=== PATIENT | female | born 1950 | race Caucasian/White ===

== ENCOUNTER 2016-08-18 08:40 | Emergency (ER) | payer MEDICARE, OTHER ==
[~2016-08-18] VITALS: Ht 161.3 cm; Wt 91.0 kg
[~2016-08-18 08:40] MED LIST: GUAI100S6 PO; MEDR4PAK3 PO; QUIN10TA15 PO; VENTAER INH; ZITH250T PO; [UNRECOGNIZED DRUG - REMARK]
[2016-08-18 08:43] VITALS: BP 162/80; PULSE 84; RESP 16; TEMP 97.9; O2SAT 99
[2016-08-18 09:10] VITALS: O2SAT 99
[2016-08-18] MEDS ORDERED: CALC600T13 PO (09:14)
[2016-08-18] MEDS ORDERED: QUIN20TA4 PO (09:14)
[2016-08-18] MEDS ORDERED: HYDR-3516 PO (09:14)
[2016-08-18] MEDS ORDERED: NABU1TAB37 PO (09:14)
[2016-08-18] MEDS ORDERED: FERR324T PO (09:14)
[2016-08-18] MEDS ORDERED: PANT40TA3 PO (09:14)
[2016-08-18] MEDS ORDERED: MONT10TA4 PO (09:14)
[2016-08-18] MEDS ORDERED: KETOROLAC TROMETHAMINE 30 MG/ML (IVP) VIAL IV PUSH ONE (09:15)
[2016-08-18] MEDS ORDERED: SODIUM CHLORIDE 0.9% FLUSH 5 ML FLUSH IVF PRN (09:15)
--- NOTE | 2016-08-18 09:24 | PD ---
HPI Chief Complaint: Chest Pain Time Seen by Provider: 08:56 Travel History International Travel<30 days: No Contact w/Intl Traveler<30days: No Traveled to known affect area: No History of Present Illness HPI This is a 65-year-old female who presents to the emergency department with right sided chest pain described as an aching in the chest wall that's been going on for about a week but has been worsening and was bothering her when she was sleeping last night. She says it hurts when she moves her arm and when she rolls from side to side. She denies any associated nausea or diaphoresis. It doesn't change with exertion only with movement. She does say she's been short of breath for about 4 months. Her primary care doctor in [place] did a pulmonary function test which was normal. She has not had any pain in her legs , but she did recently drive from [place] down to [place]. She is concerned that she may have breast cancer in her right breast as the pain is immediately behind her right breast. PFSH Past Medical History Arthritis: Yes (OA) Asthma: Yes Hypertension: Yes Respiratory: Yes (ASTHMA) Tetanus Vaccination: > 5 Years Influenza Vaccination: Yes ?: Not Menopausal: Yes Past Surgical History Joint Replacement: Yes (Rt. knee, Lt. shoulder) Social History Alcohol Use: No Tobacco Use: No Substance Use: No Allergies-Medications (Allergen,Severity, Reaction): Coded Allergies: Cipro (Unverified Allergy, Severe, SWELLING, 08/18/16) Clindamycin (Unverified Allergy, Severe, HIVES, 08/18/16) Morphine (Verified Allergy, Severe, FACIAL SWELLING/HIVES, 08/18/16) Penicillin (Unverified Allergy, Severe, FACE SWELLS, 08/18/16) Percocet (Verified Allergy, Severe, FACIAL SWELLING/HIVES, 08/18/16) Vancomycin (Unverified Allergy, Severe, RED MAN, 08/18/16) Uncoded Allergies: ? PAIN PILL (Allergy, Severe, SWELLING, 10/17/14) Reported Meds & Prescriptions Reported Meds & Active Scripts Active Reported Hydrocodone-Acetaminophen 5-325 mg Tab 1 Tab PO Q6H PRN Montelukast (Montelukast Sodium) 10 Mg Tab 10 Mg PO HS Ferrous Gluconate 324 Mg Tab 1 Tab PO DAILY Calcium 600 Mg Tab 600 Mg PO BID Quinapril (Quinapril HCl) 20 Mg Tab 20 Mg PO BID Nabumetone 500 Mg Tab 500 Mg PO BID Pantoprazole (Pantoprazole Sodium) 40 Mg Tab 40 Mg PO DAILY Review of Systems Except as stated in HPI: all other systems reviewed are Neg Physical Exam Narrative GENERAL:Well appearing, no acute distress SKIN: Warm and dry. HEAD: Atraumatic. Normocephalic. EYES: Pupils equal and round. No injection or drainage. ENT: Moist mucous membranes NECK: Trachea midline. CARDIOVASCULAR: Regular rate and rhythm. No murmur appreciated. Tender to palpation along the right chest wall immediately over the right breast. RESPIRATORY: Clear to auscultation. Breath sounds equal bilaterally. GASTROINTESTINAL: Abdomen soft, non-tender, nondistended. MUSCULOSKELETAL: Multiple scars on the bilateral lower extremities with 2+ pitting edema, swelling is worse in the left than the right. NEUROLOGICAL: Awake and alert. No obvious cranial nerve deficits. Moving all extremities. PSYCHIATRIC: Appropriate mood and affect; insight and judgment normal. Data Data Last Documented VS Vital Signs Date Time Temp Pulse Resp B/P Pulse Ox O2 Delivery O2 Flow Rate FiO2 08/18/16 09:30 69 14 139/63 100 Room Air 08/18/16 08:43 97.9 Orders Electrocardiogram (08/18/16 09:08) Complete Blood Count With Diff (08/18/16 09:08) Comprehensive Metabolic Panel (08/18/16 09:08) D-Dimer (08/18/16 09:08) Troponin I (08/18/16 09:08) Ecg Monitoring (08/18/16 09:08) Bilateral Bp Monitoring (08/18/16 09:08) Iv Access Insert/Monitor (08/18/16 09:08) Oximetry (08/18/16 09:08) Oxygen Administration (08/18/16 09:08) Sodium Chloride 0.9% Flush (Ns Flush) (08/18/16 09:15) Chest, Pa & Lat (08/18/16 09:08) Ketorolac Inj (Toradol Inj) (08/18/16 09:15) Labs Laboratory Tests Test 08/18/16 09:30 White Blood Count 7.0 TH/MM3 Red Blood Count 4.13 MIL/MM3 Hemoglobin 12.7 GM/DL Hematocrit 38.3 % Mean Corpuscular Volume 92.8 FL Mean Corpuscular Hemoglobin 30.8 PG Mean Corpuscular Hemoglobin 33.2 % Concent Red Cell Distribution Width 13.1 % Platelet Count 226 TH/MM3 Mean Platelet Volume 8.3 FL Neutrophils (%) (Auto) 71.6 % Lymphocytes (%) (Auto) 15.5 % Monocytes (%) (Auto) 8.7 % Eosinophils (%) (Auto) 2.3 % Basophils (%) (Auto) 1.9 % Neutrophils # (Auto) 5.0 TH/MM3 Lymphocytes # (Auto) 1.1 TH/MM3 Monocytes # (Auto) 0.6 TH/MM3 Eosinophils # (Auto) 0.2 TH/MM3 Basophils # (Auto) 0.1 TH/MM3 CBC Comment DIFF FINAL Differential Comment D-Dimer Quantitative (PE/DVT) 0.58 MG/L FEU Sodium Level 142 MEQ/L Potassium Level 3.6 MEQ/L Chloride Level 107 MEQ/L Carbon Dioxide Level 25.7 MEQ/L Anion Gap 9 MEQ/L Blood Urea Nitrogen 15 MG/DL Creatinine 0.80 MG/DL Estimat Glomerular Filtration 72 ML/MIN Rate Random Glucose 89 MG/DL Calcium Level 8.8 MG/DL Total Bilirubin 0.6 MG/DL Aspartate Amino Transf 16 U/L (AST/SGOT) Alanine Aminotransferase 19 U/L (ALT/SGPT) Alkaline Phosphatase 124 U/L Troponin I LESS THAN 0.02 NG/ML Total Protein 7.3 GM/DL Albumin 3.6 GM/DL [facility] Medical Decision Making Medical Screen Exam Complete: Yes Emergency Medical Condition: Yes Interpretation(s) Afebrile, no tachycardia, hypertensive No leukocytosis Electrolytes are reassuring Troponin is normal D-dimer is 0.58 below age-adjusted cut off Chest x-ray: No acute process Differential Diagnosis Pneumonia, malignancy, costochondritis, pulmonary embolism, acute coronary syndrome Narrative Course This is a 65-year-old female who presents to the emergency department with right sided chest wall pain that's been present for 5 days and is musculoskeletal in nature, worse with movement of her arm and movement of her chest. She was placed on a monitor and an IV was established. EKG was reassuring and troponin was normal. Her symptoms are very atypical for acute coronary syndrome given the location and musculoskeletal nature of her pain. Labs were obtained which were reassuring. D-dimer was below age-adjusted cutoff. I suspect the patient's pain is related to costochondritis. She remains very concerned about breast cancer. I explained to her that we can't diagnose breast cancer in the emergency department and I urged her to follow-up with a primary care physician. She was given the names of 2 local primary care physicians and I think she is safe for discharge. Diagnosis Primary Impression: Chest wall pain Patient Instructions: General Instructions Additional Instructions: If you develop severe chest pain, shortness of breath, sweating, lightheadedness , dizziness or difficulty breathing return to the emergency department immediately. Followup with your primary care physician in 2-3 days if your symptoms are not resolved. Med/Other Pt SpecificInfo: No Change to Meds Disposition: 01 DISCHARGE HOME Condition: Stable Mera Stuart MD Aug 18, 2016 09:24
[2016-08-18 09:30] VITALS: BP 139/63; PULSE 69; RESP 14; O2SAT 100
[2016-08-18 09:42] LABS: BASOPHIL # 0.1 TH/MM3 (0-0.2); BASOPHIL % 1.9 % (0.0-2.0); EOSINOPHIL # 0.2 TH/MM3 (0-0.4); EOSINOPHIL % 2.3 % (0.0-4.0); HEMATOCRIT 38.3 % (35.0-46.0); HEMO FLAGS DIFF FINAL; LYMPH % 15.5 % (9.0-44.0); LYMPHOCYTE # 1.1 TH/MM3 (1.0-4.8); MEAN CELL VOLUME 92.8 FL (80.0-100.0); MEAN CORPUSCULAR HEMOGLOBIN 30.8 PG (27.0-34.0); MEAN CORPUSCULAR HGB CONC 33.2 % (32.0-36.0); MONO % 8.7 % (0.0-8.0); NEUT % 71.6 % (16.0-70.0); PLATELET COUNT 226 TH/MM3 (150-450); RED BLOOD COUNT 4.13 MIL/MM3 (4.00-5.30); RED CELL DISTRIBUTION WIDTH 13.1 % (11.6-17.2)
[2016-08-18 09:59] LABS: CHLORIDE 107 MEQ/L (98-107); POTASSIUM 3.6 MEQ/L (3.5-5.1); SODIUM (NA) 142 MEQ/L (136-145)
[2016-08-18 10:04] LABS: ANION GAP 9 MEQ/L (5-15); BICARBONATE 25.7 MEQ/L (21.0-32.0); BLOOD UREA NITROGEN 15 MG/DL (7-18)
[2016-08-18 10:07] LABS: ALT (GPT) 19 U/L (10-53); AST (GOT) 16 U/L (15-37); GLOMERULAR FILTRATION RATE 72 ML/MIN (>89)
[2016-08-18 10:10] LABS: ALKALINE PHOSPHATASE 124 U/L (45-117)
[2016-08-18 10:20] LABS: TOTAL BILIRUBIN ADULT 0.6 MG/DL (0.2-1.0)
--- NOTE | 2016-08-18 10:52 | RADHPO ---
EXAM DATE/TIME: 08/18/2016 09:19 [facility] COMPARISON: No previous studies available for comparison. INDICATIONS : Right side chest pain, short of breath. MEDICAL HISTORY : None. SURGICAL HISTORY : None. ENCOUNTER: Initial ACUITY: 4 - 6 days PAIN SCORE: 4/10 LOCATION: Right chest FINDINGS: PA and lateral views of the chest demonstrate the lungs to be symmetrically aerated without evidence of mass, infiltrate or effusion. The cardiomediastinal contours are unremarkable. Osseous structure s are intact. CONCLUSION: No acute disease. Anrdes Ibrahim MD on August 18, 2016 at 10:51 Board Certified Radiologist. This report was verified electronically.
[2016-08-18 11:15] VITALS: BP 167/77; PULSE 63; RESP 16; O2SAT 98
[2016-08-19] MEDS ORDERED: MEDR4PAK PO (15:09)
--- NOTE | 2016-08-19 16:37 | EKG ---
Date Performed: 08/18/2016 Time Performed: 09:10:44 PTAGE: 65 years EKG: Sinus rhythm with borderline 1st degree A-V block Possible septal infarct - age undetermined Abnormal ECG NO PREVIOUS TRACING DOCTOR: Norma Engel Interpretating Date/Time 08/19/2016 16:34:36
[2016-09-04] MEDS ORDERED: ADVA250A INH (11:27)
[2016-09-04] MEDS ORDERED: VENTAER INH (12:36)
[2016-09-26] MEDS ORDERED: HYDR12.57 PO (10:06)
== END 2016-08-18 11:20 | disposition home or self-care (01) ==
LOC: PHED 08:40
DX: I10 Essential (primary) hypertension (principal); R07.89 Other chest pain
CPT/HCPCS: 71020; 80053; 84484; 85025; 85379; 93005; 96374; 99285; J1885